=== PATIENT | female | born 1955 | race African-American/Black ===

== ENCOUNTER 2020-09-27 19:33 | Inpatient (IN) | payer MEDICAID, OTHER ==
[~2020-09-27] VITALS: Ht 167.6 cm; Wt 63.5 kg
[2020-09-27] MEDS ORDERED: FUROSEMIDE 40 MG/4 ML VIAL IV ONE ×2 (20:00→22:00)
--- NOTE | 2020-09-27 20:08 | NUR ---
WILLIS FROM HOME TO ER BED 7. AAOX4. SOB, ON 2 VIA NON REBREATHER MASK, SATTING @ 100%. BROUGHT IN FOR SOB WHICH STARTED TODAY. PT WAS REPORTD TO HAVE AN O2 SAT IN THE 80% ON RA. PT WAS NOTED WITH CRACKLES AND BILAT LOWER LEG EDEMA. WAS AT THE BEDSIDE FOR EVAL. ORDERS RECEIVED, NOTED AND CARRIED OUT.
[2020-09-27] MEDS ORDERED: FUROSEMIDE 40 MG/4 ML VIAL ONE (20:26)
[2020-09-27 20:41] LABS: BILIRUBIN,TOTAL 0.1 mg/dL (0.2-1.0); CALCIUM, SERUM 6.4 mg/dL (8.5-10.1); CREATININE 3.8 mg/dL (0.6-1.3); POTASSIUM 3.8 mmol/L (3.5-5.1); TOTAL PROTEIN, SERUM 4.7 g/dL (6.4-8.2)
[2020-09-27 20:43] LABS: ALBUMIN 1.2 g/dL (3.4-5.0)
--- NOTE | 2020-09-27 20:45 | NUR ---
RT NOTES PT awake and alert, refusing to be placed on BIPAP via full mask. Dr. Carreon notified. Pt placed on Nasal Cannula on 6 LPM O2 and ABG to be drawn per Velma EDGAR.
[2020-09-27 21:23] LABS: ABG BASE EXCESS -0.8 mmol/L; ABG OXYGEN SATURATION 96.1 % (92.0-98.5); ABG PCO2 49.5 mmHg (35.0-45.0); ABG PH 7.328 (7.350-7.450); AaDO2 156.3 mmHg; COHb 0.2 % (0.5-1.5); MetHb 0.5 % (0.0-1.5); O2Hb 95.4 % (94.0-97.0); SITE, ABG Right Radial; VENT MODE, BG N/C 44%
[2020-09-27 21:26] LABS: BASOPHILS # (AUTO) 0.1 K/uL (0.0-0.2); EOSINOPHILS % (AUTO) 1.4 % (0.0-6.0); HEMATOCRIT 27 % (33-45); HEMOGLOBIN 8.2 g/dL (11.5-14.8); LYMPHOCYTES % (AUTO) 10.4 % (20.0-44.0); MEAN CORPUSCULAR HGB CONC 30 g/dl (31.0-36.0); MEAN CORPUSCULAR VOLUME 73 fL (82-100); MONOCYTES # (AUTO) 0.7 K/uL (0.1-1.30); NEUTROPHILS # (AUTO) 7.5 K/uL (1.8-8.9); NEUTROPHILS % (AUTO) 80.2 % (43.0-81.0); PLATELET COUNT (AUTO) 403 K/uL (150-450); RED BLOOD CELL COUNT(AUTO) 3.78 MIL/uL (4.0-5.2); WHITE BLOOD COUNT (AUTO) 9.4 K/uL (4.3-11.0)
[2020-09-27 21:33] LABS: LYMPHOCYTES % (MANUAL) 5 % (16-48); MONOCYTES % (MANUAL) 3 % (0-11.0); NEUTROPHILS % (MANUAL) 91 (42-76); REACTIVE LYMPHOCYTES 1 % (0-0)
--- NOTE | 2020-09-27 22:28 | NUR ---
SPOKE WITH ARACELI, NURSE INSTRUCTOR FOR CLONICAL
--- NOTE | 2020-09-28 02:04 | NUR ---
PROVIDED WITH BLANKET AND A PILLOW. VSS. ASLEEP.
[2020-09-28] MEDS ORDERED: ZOLPIDEM TARTRATE 5 MG TABLET PO PRN (03:00)
[2020-09-28] MEDS ORDERED: ACETAMINOPHEN 325 MG TABLET PO PRN (03:00)
[2020-09-28] MEDS ORDERED: ONDANSETRON HCL/PF 4 MG/2 ML VIAL IVP PRN (03:00)
[2020-09-28] MEDS ORDERED: MAGNESIUM HYDROXIDE 30 ML UDC PO PRN (03:00)
[2020-09-28] MEDS ORDERED: Z GUARD REMEDY 2 OZ OINT TP PRN (03:00)
[2020-09-28] MEDS ORDERED: BUMETANIDE INJ 1 MG in IV NS 0.9% 40 ML IV ONE (03:00)
[2020-09-28] MEDS ORDERED: BUMETANIDE INJ 0.25 MG/ML VIAL ONE (03:31)
[2020-09-28 04:40] LABS: BASOPHILS # (AUTO) 0.1 K/uL (0.0-0.2); BASOPHILS % (AUTO) 0.7 % (0.0-2.0); EOSINOPHILS % (AUTO) 1.8 % (0.0-6.0); HEMATOCRIT 29 % (33-45); HEMOGLOBIN 8.8 g/dL (11.5-14.8); LYMPHOCYTES # (AUTO) 0.9 K/uL (0.8-4.8); MEAN CORPUSCULAR HGB CONC 30 g/dl (31.0-36.0); MEAN CORPUSCULAR VOLUME 73 fL (82-100); MONOCYTES # (AUTO) 0.8 K/uL (0.1-1.30); MONOCYTES % (AUTO) 8.1 % (2.0-12.0); NEUTROPHILS # (AUTO) 7.9 K/uL (1.8-8.9); NEUTROPHILS % (AUTO) 80.4 % (43.0-81.0); PLATELET COUNT (AUTO) 420 K/uL (150-450); WHITE BLOOD COUNT (AUTO) 9.8 K/uL (4.3-11.0)
[2020-09-28 04:51] LABS: CALCIUM, SERUM 6.8 mg/dL (8.5-10.1); MAGNESIUM 1.7 mg/dL (1.8-2.4); PHOSPHORUS 5.1 mg/dL (2.5-4.9); POTASSIUM 3.7 mmol/L (3.5-5.1)
[2020-09-28 05:35] LABS: BASOPHILS % (MANUAL) 0 % (0.0-2.0); EOSINOPHILS % (MANUAL) 2 % (0-4); LYMPHOCYTES % (MANUAL) 4 % (16-48); MONOCYTES % (MANUAL) 4 % (0-11.0); NEUTROPHILS % (MANUAL) 89 (42-76)
[2020-09-28 05:47] LABS: IRON, SERUM 14 ug/dl (50-175); TOTAL IRON BINDING CAPACITY 221 ug/dl (250-450)
[2020-09-28 07:35] VITALS: BP 168/98
--- NOTE | 2020-09-28 07:35 | NUR ---
PATIENT IN BED, ON O2 WITH NO DISTRESS NOTED. NEEDS ATTENDED. KEPT COMFORTABLE.
[2020-09-28] MEDS ORDERED: AMLO-213 PO (08:00)
[2020-09-28] MEDS ORDERED: ASPI-1169 PO (08:00)
[2020-09-28] MEDS ORDERED: CARV12.52 PO (08:00)
[2020-09-28] MEDS ORDERED: FURO40TA5 PO (08:00)
[2020-09-28] MEDS ORDERED: MULT-447 PO (08:00)
[2020-09-28] MEDS ORDERED: SIMV-46 PO (08:00)
--- NOTE | 2020-09-28 08:07 | NUR ---
REPORT GIVEN TO INO RECINOS FOR FILIPPO.
--- NOTE | 2020-09-28 09:46 | NUR ---
RN NOTE DR. BREWER NOTIFIED OF PATIENT LEAVING AMA. AMA DOCUMENTATION SIGNED BY PATIENT.
== END 2020-09-28 10:50 | disposition left against medical advice (07) | DRG 469 ==
LOC: ER 19:35 → TRANSITION 09-28 02:29 → TELE1 09-28 08:10
PROVIDERS: ADMIT Nurse Practitioner Acute Care; ATTEND Hospitalist
DX: N17.9 Acute kidney failure, unspecified (principal); J96.00 Acute respiratory failure, unspecified whether with hypoxia or hypercapnia; E43 Unspecified severe protein-calorie malnutrition; J90 Pleural effusion, not elsewhere classified; E87.0 Hyperosmolality and hypernatremia; D50.9 Iron deficiency anemia, unspecified; F12.90 Cannabis use, unspecified, uncomplicated; D63.8 Anemia in other chronic diseases classified elsewhere; N18.9 Chronic kidney disease, unspecified; Z20.822 Contact with and (suspected) exposure to COVID-19; I25.10 Atherosclerotic heart disease of native coronary artery without angina pectoris; J44.9 Chronic obstructive pulmonary disease, unspecified; I12.9 Hypertensive chronic kidney disease with stage 1 through stage 4 chronic kidney disease, or unspecified chronic kidney disease; Z91.19 Patient's noncompliance with other medical treatment and regimen; F14.90 Cocaine use, unspecified, uncomplicated; Z79.899 Other long term (current) drug therapy
CPT/HCPCS: 36415; 36600; 71045-TC; 80048-TC; 80061-TC; 80076-TC; 83540-TC; 83735-TC; 83880; 84100-TC; 84484-TC; 85025-TC; 85730-TC; 87081-TC; C9803; G0378; J1940; J2405; J3490

== ENCOUNTER 2021-11-29 23:42 | Emergency (ER) | payer OTHER ==
[~2021-11-29] VITALS: Ht 167.6 cm; Wt 64.9 kg
[~2021-11-29 23:42] MED LIST: AMLO-213 PO; ASPI-1169 PO; CARV12.52 PO; FURO40TA5 PO; MULT-447 PO; SIMV-46 PO
--- NOTE | 2021-11-30 00:42 | NUR ---
WILLIS FROM HOME TO ER BED 6.AAOX4. NOT IN RESP DISTRESS. BROUGHT IN FOR ABD PAIN COUASED BY DISTENTION WHICH STARTED TODAY BECAUSE SHE MISSED HER DIALYSIS TODAY. AWAITING MD FOR TERESA.
--- NOTE | 2021-11-30 01:09 | NUR ---
MARCO COLLECTED AND SENT TO LAB
--- NOTE | 2021-11-30 01:31 | NUR ---
IV LINE ESTABLISHED. [id number]
--- NOTE | 2021-11-30 01:31 | NUR ---
BLOOD AND CULTURES COLLECTED
--- NOTE | 2021-11-30 01:35 | NUR ---
PT TAKEN TO CT VIA TWAN
--- NOTE | 2021-11-30 01:35 | NUR ---
PT TAKEN TO CT SCAN VIA TWAN
[2021-11-30 01:50] LABS: BASOPHILS # (AUTO) 0.1 K/uL (0.0-0.2); BASOPHILS % (AUTO) 0.9 % (0.0-2.0); EOSINOPHILS % (AUTO) 1.4 % (0.0-6.0); HEMATOCRIT 35 % (33-45); HEMOGLOBIN 10.5 g/dL (11.5-14.8); LYMPHOCYTES # (AUTO) 0.8 K/uL (0.8-4.8); LYMPHOCYTES % (AUTO) 13.2 % (20.0-44.0); MEAN CORPUSCULAR HGB CONC 31 g/dl (31.0-36.0); MEAN CORPUSCULAR VOLUME 92 fL (82-100); MONOCYTES # (AUTO) 0.6 K/uL (0.1-1.30); MONOCYTES % (AUTO) 10.1 % (2.0-12.0); NEUTROPHILS # (AUTO) 4.3 K/uL (1.8-8.9); NEUTROPHILS % (AUTO) 74.4 % (43.0-81.0); PLATELET COUNT (AUTO) 333 K/uL (150-450); RED BLOOD CELL COUNT(AUTO) 3.77 MIL/uL (4.0-5.2); WHITE BLOOD COUNT (AUTO) 5.8 K/uL (4.3-11.0)
[2021-11-30 02:00] LABS: SERUM AMMONIA < 10 umol/L (11-32)
--- NOTE | 2021-11-30 02:02 | NUR ---
[facility] DR. SIMONS PEER TO PEER # FOR REPORT [phone]
--- NOTE | 2021-11-30 02:16 | NUR ---
PT UNABLE TO PROVIDE URINE AT THIS TIME
[2021-11-30 02:23] LABS: ALANINE AMINOTRANSFERASE 26 U/L (12-78); ALBUMIN 1.7 g/dL (3.4-5.0); ALKALINE PHOSPHATASE 152 U/L (46-116); ASPARTATE AMINOTRANSFERASE 28 U/L (15-37); BILIRUBIN,TOTAL 0.1 mg/dL (0.2-1.0); CARBON DIOXIDE 27 mmol/L (21-32); CHLORIDE 110 mmol/L (98-107); CREATININE 4.2 mg/dL (0.6-1.3); GLUCOSE 117 mg/dL (74-106); LIPASE 201 U/L (73-393); POTASSIUM 4.8 mmol/L (3.5-5.1); SODIUM SERUM 143 mmol/L (136-145); TOTAL PROTEIN, SERUM 5.3 g/dL (6.4-8.2); UREA NITROGEN, BLOOD 42 mg/dL (7-18)
--- NOTE | 2021-11-30 03:44 | NUR ---
CLINICALS FAXED TO [facility] PER DEBRA JOSHUA
--- NOTE | 2021-11-30 04:32 | NUR ---
ACCEPTING INFO PER [facility] CM [phone] [facility] ROOM [address] KRISTYN HAMILTON FOR TRANSPORTATION [id number] Addendum: 11/30/21 at 0441 by JISIP ACCEPTING INFO PER [facility] CM [phone] [facility] ROOM [address] KRISTYN HAMILTON FOR TRANSPORTATION [phone]
--- NOTE | 2021-11-30 04:41 | NUR ---
TRANSFER ETA 90-120MINS
--- NOTE | 2021-11-30 05:30 | NUR ---
REPORT GIVEN TO SHAYNE RECINOS AT [facility] FOR FILIPPO
--- NOTE | 2021-11-30 05:45 | NUR ---
ADLS DONE; PT TAKEN TO RESTROOM VIA W/C. URINE OUTPUT NOTED
[2021-11-30 07:07] VITALS: BP 144/88
[2021-11-30 10:55] LABS: EOSINOPHILS % (MANUAL) 5 % (0-4); LYMPHOCYTES % (MANUAL) 3 % (16-48); METAMYELOCYTES % 1 % (0-0); MONOCYTES % (MANUAL) 10 % (0-11.0); NEUTROPHILS % (MANUAL) 81 (42-76)
== END 2021-11-30 08:21 | disposition short-term general hospital (02) ==
LOC: ER 23:43
DX: R18.8 Other ascites (principal); K74.60 Unspecified cirrhosis of liver; N17.9 Acute kidney failure, unspecified; I13.2 Hypertensive heart and chronic kidney disease with heart failure and with stage 5 chronic kidney disease, or end stage renal disease; N18.6 End stage renal disease; I50.9 Heart failure, unspecified; Z99.2 Dependence on renal dialysis; Z79.82 Long term (current) use of aspirin; Z79.899 Other long term (current) drug therapy; J44.9 Chronic obstructive pulmonary disease, unspecified; R94.31 Abnormal electrocardiogram [ECG] [EKG]; Z20.822 Contact with and (suspected) exposure to COVID-19
CPT/HCPCS: 99285; 74176; 71045; 87426; 93005; 82140; 85025; 80048; 87040 ×2; 83605; 83690; 80076; 36415; 84484; 85730; 85007; C9803

== ENCOUNTER 2022-02-18 11:18 | Emergency (ER) | payer MEDICAID, OTHER ==
[~2022-02-18] VITALS: Ht 167.6 cm; Wt 64.9 kg
--- NOTE | 2022-02-18 11:20 | NUR ---
BIBA RA81 From Home "SOB/COPD exacerbation/Kidney Failure on dialysis. PLACED ON BED, AAOX4, TACHYPNEIC RR- 30 SATURATING AT 94%RA.
--- NOTE | 2022-02-18 11:31 | NUR ---
DR ESCAMILLA AT BEDSIDE FOR EVAL
[2022-02-18] MEDS ORDERED: ALBUTEROL FS 2.5 MG/3 ML VIAL.NEB ONE (11:53)
[2022-02-18] MEDS ORDERED: IPRATROPIUM NEB FS 0.5 MG/2.5 ML AMPUL.NEB ONE (11:54)
--- NOTE | 2022-02-18 11:55 | NUR ---
BLOOD DRAWN AND SENT TO LAB
[2022-02-18] MEDS ORDERED: methylPREDNISolone SOD SUCC 125 MG/2ML VIAL ONE (11:58)
[2022-02-18] MEDS ORDERED: ALBUTEROL FS 2.5 MG/3 ML VIAL.NEB NEB ONE (12:00)
[2022-02-18] MEDS ORDERED: methylPREDNISolone SOD SUCC 125 MG/2ML VIAL IV ONE (12:00)
[2022-02-18] MEDS ORDERED: IPRATROPIUM NEB FS 0.5 MG/2.5 ML AMPUL.NEB NEB ONE (12:00)
--- NOTE | 2022-02-18 12:11 | NUR ---
SWAB FOR COVID19 AND RAPID INFLUENZA SENT TO LAB
--- NOTE | 2022-02-18 12:15 | NUR ---
PT VERBALIZED THAT SHE WANTED TO LEAVE THE HOSPITAL AND GO HOME. DR. ESCAMILLA AT BEDSIDE W/ PT AND AWARE.
--- NOTE | 2022-02-18 12:19 | NUR ---
CALLED PT CONTACT [phone] AND WILL BE PICKED UP
--- NOTE | 2022-02-18 12:25 | NUR ---
RESP. TECH. AT BEDSIDE FOR BREATHING TREATMENT
[2022-02-18 12:28] LABS: BASOPHILS % (AUTO) 0.3 % (0.0-2.0); EOSINOPHILS % (AUTO) 0.9 % (0.0-6.0); HEMATOCRIT 30 % (33-45); HEMOGLOBIN 9.4 g/dL (11.5-14.8); LYMPHOCYTES # (AUTO) 0.2 K/uL (0.8-4.8); LYMPHOCYTES % (AUTO) 3.2 % (20.0-44.0); MEAN CORPUSCULAR HGB CONC 31 g/dl (31.0-36.0); MEAN CORPUSCULAR VOLUME 83 fL (82-100); MONOCYTES # (AUTO) 0.5 K/uL (0.1-1.30); MONOCYTES % (AUTO) 6.4 % (2.0-12.0); NEUTROPHILS # (AUTO) 6.9 K/uL (1.8-8.9); NEUTROPHILS % (AUTO) 89.2 % (43.0-81.0); PLATELET COUNT (AUTO) 321 K/uL (150-450); RED BLOOD CELL COUNT(AUTO) 3.65 MIL/uL (4.0-5.2); WHITE BLOOD COUNT (AUTO) 7.8 K/uL (4.3-11.0)
--- NOTE | 2022-02-18 12:39 | NUR ---
MIGRATORY WORKER/MED RECON UNABLE TO UPDATE HOME MEDICATION INFORMATION DUE TO THE PATIENT REFUSED TO PROVIDE. EXPLAINED RISK AND BENEFITS X3, PATIENT STILL REFUSED. PATIENT RIGHTS RESPECTED. PRIMARY RN MADE AWARE.
[2022-02-18 12:52] LABS: BILIRUBIN,DIRECT 0.1 mg/dL (0.0-0.2); BILIRUBIN,TOTAL 0.2 mg/dL (0.2-1.0); CREATININE 3.7 mg/dL (0.6-1.3); POTASSIUM 3.7 mmol/L (3.5-5.1); TOTAL PROTEIN, SERUM 4.4 g/dL (6.4-8.2)
[2022-02-18 13:06] LABS: CALCIUM, SERUM 4.6 mg/dL (8.5-10.1)
[2022-02-18 13:07] LABS: ALBUMIN 1.3 g/dL (3.4-5.0)
--- NOTE | 2022-02-18 13:20 | NUR ---
Note undone in EDM - 02/18/22 at 1326 by MARCO IV removed. Catheter intact and site benign. Pressure and 4x4 applied to site. No bleeding noted.Patient discharged to home in stable condition. Written and verbal after care instructions given. Patient verbalizes understanding of instruction.
--- NOTE | 2022-02-18 13:20 | NUR ---
IV removed. Catheter intact and site benign. Pressure and 4x4 applied to site. No bleeding noted.Patient discharged to home in stable condition.
[2022-02-18 13:27] VITALS: BP 98/50
== END 2022-02-18 13:20 | disposition home or self-care (01) ==
LOC: ER 11:25
DX: J44.9 Chronic obstructive pulmonary disease, unspecified (principal); I13.11 Hypertensive heart and chronic kidney disease without heart failure, with stage 5 chronic kidney disease, or end stage renal disease; N18.6 End stage renal disease; Z99.2 Dependence on renal dialysis; Z79.899 Other long term (current) drug therapy; Z79.82 Long term (current) use of aspirin; Z53.29 Procedure and treatment not carried out because of patient's decision for other reasons; Z20.822 Contact with and (suspected) exposure to COVID-19
CPT/HCPCS: 99291; 96374; 87426; 93005; 87804; 85025; 80048; 80076; 83880; 94640; J2930; C9803; 36415

== ENCOUNTER 2022-09-29 22:46 | Emergency (ER) | payer MEDICARE, OTHER ==
[~2022-09-29] VITALS: Ht 167.6 cm; Wt 62.6 kg
[2022-09-29] MEDS ORDERED: NITROGLYCERIN 0.4 MG/TAB BOTTLE SL ONE (23:00)
[2022-09-29] MEDS ORDERED: FUROSEMIDE 40 MG/4 ML VIAL IV ONE (23:00)
[2022-09-29] MEDS ORDERED: NITROGLYCERIN 0.4 MG/TAB BOTTLE ONE (23:33)
[2022-09-30] MEDS ORDERED: FUROSEMIDE 40 MG/4 ML VIAL ONE (00:08)
[2022-09-30] MEDS ORDERED: AZITHROMYCIN 500 MG in IV D5W 250 ML IV ONE (01:30)
[2022-09-30] MEDS ORDERED: CEFTRIAXONE 1 G in IV D5W 50 ML IV ONE (01:30)
[2022-09-30] MEDS ORDERED: LIDOCAINE 1% INJ 50 ML MDV IJ ONE (01:43)
[2022-09-30] MEDS ORDERED: AZITHROMYCIN 500 MG VIAL ONE (01:43)
[2022-09-30] MEDS ORDERED: CEFTRIAXONE 1 G VIAL ONE (01:43)
[2022-09-30 01:51] LABS: BASOPHILS # (AUTO) 0.1 K/uL (0.0-0.2); EOSINOPHILS # (AUTO) 0.2 K/uL (0.0-0.7); HEMATOCRIT 25 % (33-45); HEMOGLOBIN 7.3 g/dL (11.5-14.8); LYMPHOCYTES # (AUTO) 0.7 K/uL (0.8-4.8); MEAN CORPUSCULAR HGB CONC 30 g/dl (31.0-36.0); MONOCYTES # (AUTO) 0.9 K/uL (0.1-1.30)
[2022-09-30 01:57] LABS: BASOPHILS % (AUTO) 0.9 % (0.0-2.0); EOSINOPHILS % (AUTO) 2.3 % (0.0-6.0); LYMPHOCYTES % (AUTO) 7.4 % (20.0-44.0); MEAN CORPUSCULAR HEMOGLOBIN 25 PG (26.0-33.0); MEAN CORPUSCULAR VOLUME 84 fL (82-100); MONOCYTES % (AUTO) 10.4 % (2.0-12.0); PLATELET COUNT (AUTO) 435 K/uL (150-450); RED BLOOD CELL COUNT(AUTO) 2.93 MIL/uL (4.0-5.2); RED CELL DISTRIBUTION WIDTH 20.1 % (11.5-15.0); WHITE BLOOD COUNT (AUTO) 8.9 K/uL (4.3-11.0)
[2022-09-30 02:00] LABS: CALCIUM, SERUM 6.6 mg/dL (8.5-10.1); CARBON DIOXIDE 25 mmol/L (21-32); CHLORIDE 109 mmol/L (98-107); CREATININE 2.9 mg/dL (0.6-1.3); GLUCOSE 108 mg/dL (74-106); POTASSIUM 4.5 mmol/L (3.5-5.1); SODIUM SERUM 143 mmol/L (136-145); UREA NITROGEN, BLOOD 45 mg/dL (7-18)
[2022-09-30 02:08] LABS: INR 1.06 (0.91-1.10); LACTIC ACID 0.2 mmol/L (0.4-2.0); PARTIAL THROMBOPLASTIN TIME 29.3 SEC (24.3-34.3); PROTHROMBIN TIME 11.1 SECS (9.2-11.1)
[2022-09-30 02:13] LABS: ALANINE AMINOTRANSFERASE 35 U/L (12-78); ALKALINE PHOSPHATASE 143 U/L (46-116); ASPARTATE AMINOTRANSFERASE 31 U/L (15-37); BILIRUBIN,DIRECT 0.1 mg/dL (0.0-0.2); BILIRUBIN,TOTAL 0.1 mg/dL (0.2-1.0); NT-PRO BNP 4039 pg/mL (0-125); TOTAL PROTEIN, SERUM 4.8 g/dL (6.4-8.2)
[2022-09-30 02:27] LABS: ALBUMIN 1.4 g/dL (3.4-5.0)
[2022-09-30 09:45] VITALS: BP 135/88; TEMP 98.4; O2SAT 98
== END 2022-09-30 09:48 | disposition home or self-care (01) ==
LOC: ER 22:55
DX: I13.2 Hypertensive heart and chronic kidney disease with heart failure and with stage 5 chronic kidney disease, or end stage renal disease (principal); I50.9 Heart failure, unspecified; N18.6 End stage renal disease; J18.9 Pneumonia, unspecified organism; D64.9 Anemia, unspecified; R18.8 Other ascites; J44.9 Chronic obstructive pulmonary disease, unspecified; F17.200 Nicotine dependence, unspecified, uncomplicated; Z99.2 Dependence on renal dialysis; Z20.822 Contact with and (suspected) exposure to COVID-19; Z79.899 Other long term (current) drug therapy; Z79.82 Long term (current) use of aspirin; Z60.2 Problems related to living alone
CPT/HCPCS: 99291; 96375; 87426; 93005; 71045; 87040 ×2; 36415; 96365; 96367; 85025; 80048; 83605; 80076; 84484; 85730; 83880; J1940; J3490; J0696 ×2; J7060 ×2; J7030; J0456; C9803

== ENCOUNTER 2022-11-03 21:43 | Emergency (ER) | payer MEDICARE, OTHER ==
[~2022-11-03] VITALS: Ht 167.6 cm; Wt 62.6 kg
[2022-11-03 21:54] VITALS: TEMP 98.5
[2022-11-03] MEDS ORDERED: FUROSEMIDE 40 MG/4 ML VIAL IV ONE (22:00)
[2022-11-03] MEDS ORDERED: FUROSEMIDE 40 MG/4 ML VIAL ONE (22:00)
[2022-11-03 22:22] LABS: BASOPHILS # (AUTO) 0.1 K/uL (0.0-0.2); BASOPHILS % (AUTO) 0.9 % (0.0-2.0); EOSINOPHILS # (AUTO) 0.2 K/uL (0.0-0.7); EOSINOPHILS % (AUTO) 2.2 % (0.0-6.0); HEMATOCRIT 31 % (33-45); HEMOGLOBIN 8.8 g/dL (11.5-14.8); LYMPHOCYTES # (AUTO) 0.5 K/uL (0.8-4.8); LYMPHOCYTES % (AUTO) 7.3 % (20.0-44.0); MEAN CORPUSCULAR HEMOGLOBIN 26 PG (26.0-33.0); MEAN CORPUSCULAR HGB CONC 29 g/dl (31.0-36.0); MEAN CORPUSCULAR VOLUME 90 fL (82-100); MONOCYTES # (AUTO) 0.6 K/uL (0.1-1.30); MONOCYTES % (AUTO) 7.8 % (2.0-12.0); NEUTROPHILS # (AUTO) 6.1 K/uL (1.8-8.9); NEUTROPHILS % (AUTO) 81.8 % (43.0-81.0); PLATELET COUNT (AUTO) 333 K/uL (150-450); RED CELL DISTRIBUTION WIDTH 23.8 % (11.5-15.0); WHITE BLOOD COUNT (AUTO) 7.4 K/uL (4.3-11.0)
[2022-11-03 22:33] LABS: INR 1.02 (0.91-1.10); PARTIAL THROMBOPLASTIN TIME 26.6 SEC (24.3-34.3); PROTHROMBIN TIME 10.7 SECS (9.2-11.1)
[2022-11-03 22:54] LABS: CALCIUM, SERUM 6.7 mg/dL (8.5-10.1); CARBON DIOXIDE 27 mmol/L (21-32); CHLORIDE 112 mmol/L (98-107); CREATININE 2.8 mg/dL (0.6-1.3); GLUCOSE 105 mg/dL (74-106); POTASSIUM 4.4 mmol/L (3.5-5.1); SODIUM SERUM 146 mmol/L (136-145); UREA NITROGEN, BLOOD 33 mg/dL (7-18)
[2022-11-03 23:02] LABS: LACTIC ACID 0.8 mmol/L (0.4-2.0)
[2022-11-03 23:09] LABS: ALANINE AMINOTRANSFERASE 22 U/L (12-78); ALBUMIN 1.5 g/dL (3.4-5.0); ALKALINE PHOSPHATASE 144 U/L (46-116); ASPARTATE AMINOTRANSFERASE 24 U/L (15-37); BILIRUBIN,DIRECT 0.1 mg/dL (0.0-0.2); BILIRUBIN,TOTAL 0.1 mg/dL (0.2-1.0); NT-PRO BNP 5777 pg/mL (0-125)
[2022-11-03] MEDS ORDERED: CEFTRIAXONE 1GM BAG (ER ONLY) 1 GM/50 ML PIGGYBACK IV ONE (23:30)
[2022-11-03] MEDS ORDERED: AZITHROMYCIN 500 MG in IV D5W 250 ML IV ONE (23:30)
[2022-11-03] MEDS ORDERED: CEFTRIAXONE 1GM BAG (ER ONLY) 50 ML IV ONE (23:31)
[2022-11-03] MEDS ORDERED: AZITHROMYCIN 500 MG VIAL ONE (23:31)
[2022-11-04 00:17] LABS: ANISOCYTOSIS 1+; EOSINOPHILS % (MANUAL) 1 % (0-4); LYMPHOCYTES % (MANUAL) 3 % (16-48); MONOCYTES % (MANUAL) 9 % (0-11.0); NEUTROPHILS % (MANUAL) 87 (42-76); PLATELET ESTIMATE ADEQUATE
[2022-11-04 00:18] LABS: OVALOCYTES 1+
[2022-11-04] MEDS ORDERED: ONDANSETRON HCL/PF 4 MG/2 ML VIAL ONE (00:33)
[2022-11-04] MEDS ORDERED: ONDANSETRON HCL/PF 4 MG/2 ML VIAL IV ONE (01:00)
[2022-11-04 02:18] LABS: ANISOCYTOSIS 1+; OVALOCYTES 1+; PLATELET ESTIMATE ADEQUATE
[2022-11-04 07:06] VITALS: BP 123/75; O2SAT 99
== END 2022-11-04 08:42 | disposition short-term general hospital (02) ==
LOC: ER 21:51
DX: I13.2 Hypertensive heart and chronic kidney disease with heart failure and with stage 5 chronic kidney disease, or end stage renal disease (principal); N18.6 End stage renal disease; I50.9 Heart failure, unspecified; D63.1 Anemia in chronic kidney disease; R18.8 Other ascites; J18.9 Pneumonia, unspecified organism; J44.9 Chronic obstructive pulmonary disease, unspecified; F17.200 Nicotine dependence, unspecified, uncomplicated; Z20.822 Contact with and (suspected) exposure to COVID-19; Z79.82 Long term (current) use of aspirin; Z79.899 Other long term (current) drug therapy; Z99.2 Dependence on renal dialysis; Z60.2 Problems related to living alone
CPT/HCPCS: 99291; 96365; 96367; 96375 ×2; 87426; 93005; 71045; 85025; 80048; 87040 ×2; 83605; 80076; 36415 ×2; 84484; 85730; 83880; 85007; J1940; J0456; A4223; J0696; J2405; J7030; C9803; J7060

== ENCOUNTER 2022-11-14 23:11 | Emergency (ER) | payer MEDICARE, OTHER ==
[~2022-11-14] VITALS: Ht 167.6 cm; Wt 62.6 kg
[2022-11-15] MEDS ORDERED: methylPREDNISolone SOD SUCC 125 MG/2ML VIAL IV ONE
[2022-11-15] MEDS ORDERED: IPRATROPIUM NEB FS 0.5 MG/2.5 ML AMPUL.NEB NEB ONE
[2022-11-15] MEDS ORDERED: ALBUTEROL FS 2.5 MG/3 ML VIAL.NEB NEB ONE
[2022-11-15] MEDS ORDERED: ALBUTEROL FS 2.5 MG/3 ML VIAL.NEB ONE (00:09)
[2022-11-15] MEDS ORDERED: IPRATROPIUM NEB FS 0.5 MG/2.5 ML AMPUL.NEB ONE (00:09)
[2022-11-15 00:15] VITALS: O2SAT 100
[2022-11-15 00:25] VITALS: O2SAT 100
[2022-11-15 00:27] VITALS: O2SAT 100
[2022-11-15] MEDS ORDERED: methylPREDNISolone SOD SUCC 125 MG/2ML VIAL ONE (00:33)
[2022-11-15 00:37] VITALS: O2SAT 100
[2022-11-15 01:59] LABS: BASOPHILS # (AUTO) 0.1 K/uL (0.0-0.2); BASOPHILS % (AUTO) 1.1 % (0.0-2.0); EOSINOPHILS # (AUTO) 0.2 K/uL (0.0-0.7); EOSINOPHILS % (AUTO) 2.2 % (0.0-6.0); HEMATOCRIT 29 % (33-45); HEMOGLOBIN 8.7 g/dL (11.5-14.8); LYMPHOCYTES # (AUTO) 0.5 K/uL (0.8-4.8); LYMPHOCYTES % (AUTO) 7.1 % (20.0-44.0); MEAN CORPUSCULAR HEMOGLOBIN 26 PG (26.0-33.0); MEAN CORPUSCULAR HGB CONC 30 g/dl (31.0-36.0); MEAN CORPUSCULAR VOLUME 88 fL (82-100); MONOCYTES # (AUTO) 0.6 K/uL (0.1-1.30); MONOCYTES % (AUTO) 8.6 % (2.0-12.0); NEUTROPHILS # (AUTO) 5.5 K/uL (1.8-8.9); PLATELET COUNT (AUTO) 343 K/uL (150-450); RED BLOOD CELL COUNT(AUTO) 3.33 MIL/uL (4.0-5.2); RED CELL DISTRIBUTION WIDTH 20.9 % (11.5-15.0); WHITE BLOOD COUNT (AUTO) 6.8 K/uL (4.3-11.0)
[2022-11-15 02:12] LABS: MAGNESIUM 2.1 mg/dL (1.8-2.4); PHOSPHORUS 4.7 mg/dL (2.5-4.9)
[2022-11-15 02:14] LABS: ALANINE AMINOTRANSFERASE 24 U/L (12-78); ALBUMIN 1.5 g/dL (3.4-5.0); ALKALINE PHOSPHATASE 145 U/L (46-116); ASPARTATE AMINOTRANSFERASE 23 U/L (15-37); BILIRUBIN,DIRECT 0.1 mg/dL (0.0-0.2); BILIRUBIN,TOTAL 0.1 mg/dL (0.2-1.0); CALCIUM, SERUM 6.8 mg/dL (8.5-10.1); CARBON DIOXIDE 29 mmol/L (21-32); CHLORIDE 110 mmol/L (98-107); CREATININE 2.3 mg/dL (0.6-1.3); GLUCOSE 133 mg/dL (74-106); POTASSIUM 3.9 mmol/L (3.5-5.1); SODIUM SERUM 145 mmol/L (136-145); TOTAL PROTEIN, SERUM 5.2 g/dL (6.4-8.2); UREA NITROGEN, BLOOD 30 mg/dL (7-18)
[2022-11-15 02:16] LABS: LACTIC ACID 0.9 mmol/L (0.4-2.0)
[2022-11-15] MEDS ORDERED: PRED50TA PO (03:49)
[2022-11-15 04:58] VITALS: BP 141/83; TEMP 98.3; O2SAT 97
== END 2022-11-15 04:59 | disposition home or self-care (01) ==
LOC: ER 23:12
DX: R06.02 Shortness of breath (principal); I13.2 Hypertensive heart and chronic kidney disease with heart failure and with stage 5 chronic kidney disease, or end stage renal disease; N18.6 End stage renal disease; I50.9 Heart failure, unspecified; J44.9 Chronic obstructive pulmonary disease, unspecified; F17.200 Nicotine dependence, unspecified, uncomplicated; Z60.2 Problems related to living alone; Z20.822 Contact with and (suspected) exposure to COVID-19
CPT/HCPCS: 99285; 71045; 93005; 36415; 96374; 87426; 85025; 80048; 83605; 80076; 83735; 84100; 84484; 94640 ×2; J2930; C9803

== ENCOUNTER 2022-12-13 06:19 | Emergency (ER) | payer MEDICARE, OTHER ==
[~2022-12-13] VITALS: Ht 167.6 cm; Wt 63.5 kg
[~2022-12-13 06:19] MED LIST changes: +PRED50TA PO
[2022-12-13] MEDS ORDERED: PIPERACILLIN /TAZOBACTAM 3.375 G in IV D5W 50 ML IV ONE (06:30)
[2022-12-13] MEDS ORDERED: VANCOMYCIN 1 GM in IV D5W 250 ML IV ONE (06:30)
[2022-12-13] MEDS ORDERED: PIPERACI/TAZO 3.375GM/D5W 50ML PB IV ONE (06:55)
[2022-12-13] MEDS ORDERED: VANCOMYCIN 1 GM /D5W 250 ML PB IV ONE (06:55)
[2022-12-13 07:10] LABS: BASOPHILS # (AUTO) 0.1 K/uL (0.0-0.2); BASOPHILS % (AUTO) 1.1 % (0.0-2.0); EOSINOPHILS # (AUTO) 0.1 K/uL (0.0-0.7); EOSINOPHILS % (AUTO) 1.6 % (0.0-6.0); HEMATOCRIT 27 % (33-45); LYMPHOCYTES # (AUTO) 0.4 K/uL (0.8-4.8); LYMPHOCYTES % (AUTO) 5.4 % (20.0-44.0); MEAN CORPUSCULAR HEMOGLOBIN 25 PG (26.0-33.0); MEAN CORPUSCULAR HGB CONC 29 g/dl (31.0-36.0); MEAN CORPUSCULAR VOLUME 86 fL (82-100); MONOCYTES # (AUTO) 0.7 K/uL (0.1-1.30); MONOCYTES % (AUTO) 8.9 % (2.0-12.0); NEUTROPHILS # (AUTO) 6.3 K/uL (1.8-8.9); PLATELET COUNT (AUTO) 497 K/uL (150-450); RED BLOOD CELL COUNT(AUTO) 3.17 MIL/uL (4.0-5.2); RED CELL DISTRIBUTION WIDTH 20.3 % (11.5-15.0); WHITE BLOOD COUNT (AUTO) 7.6 K/uL (4.3-11.0)
[2022-12-13 07:26] LABS: C-REACTIVE PROTEIN 3.3 mg/dL (0.0-0.9)
[2022-12-13 07:31] LABS: LACTIC ACID 0.7 mmol/L (0.4-2.0)
[2022-12-13 08:12] LABS: ALANINE AMINOTRANSFERASE 31 U/L (12-78); ASPARTATE AMINOTRANSFERASE 70 U/L (15-37); BILIRUBIN,TOTAL 0.4 mg/dL (0.2-1.0); CALCIUM, SERUM 6.4 mg/dL (8.5-10.1); CARBON DIOXIDE 22 mmol/L (21-32); CHLORIDE 106 mmol/L (98-107); CREATININE 3.5 mg/dL (0.6-1.3); GLUCOSE 88 mg/dL (74-106); POTASSIUM 5.9 mmol/L (3.5-5.1); SODIUM SERUM 141 mmol/L (136-145); TOTAL PROTEIN, SERUM 5.4 g/dL (6.4-8.2); UREA NITROGEN, BLOOD 58 mg/dL (7-18)
[2022-12-13] MEDS ORDERED: CHOL100043 PO (08:17)
[2022-12-13] MEDS ORDERED: DILT30TA14 PO (08:17)
[2022-12-13] MEDS ORDERED: ATOR10TA PO (08:17)
[2022-12-13] MEDS ORDERED: SEVE800T28 PO (08:17)
[2022-12-13] MEDS ORDERED: CALC0.253 PO (08:17)
[2022-12-13] MEDS ORDERED: ALBU18HF2 IH (08:17)
[2022-12-13] MEDS ORDERED: ASPI-1420 PO (08:17)
[2022-12-13] MEDS ORDERED: VIT1TABL46 PO (08:17)
[2022-12-13 08:25] LABS: ALKALINE PHOSPHATASE 136 U/L (46-116)
[2022-12-13 08:27] LABS: ALBUMIN 1.2 g/dL (3.4-5.0)
[2022-12-13 08:28] LABS: BILIRUBIN,DIRECT < 0.0 mg/dL (0.0-0.2)
[2022-12-13 09:50] VITALS: BP 109/67; TEMP 98.9; O2SAT 100
== END 2022-12-13 12:02 | disposition short-term general hospital (02) ==
LOC: ER 06:21
DX: R06.00 Dyspnea, unspecified (principal); I13.2 Hypertensive heart and chronic kidney disease with heart failure and with stage 5 chronic kidney disease, or end stage renal disease; I50.9 Heart failure, unspecified; N18.6 End stage renal disease; L03.115 Cellulitis of right lower limb; J44.9 Chronic obstructive pulmonary disease, unspecified; F17.200 Nicotine dependence, unspecified, uncomplicated; Z99.2 Dependence on renal dialysis; Z60.2 Problems related to living alone; Z79.899 Other long term (current) drug therapy; Z20.822 Contact with and (suspected) exposure to COVID-19
CPT/HCPCS: 99285; 96365; 71045; 87426; 96368; 93005; 73590; 85025; 80048; 87040 ×2; 83605; 80076; 85652; 36415; 84484; 83880; 86140; J3370 ×2; J2543 ×2; J7060; A4223; C9803

== ENCOUNTER 2023-01-22 04:13 | Emergency (ER) | payer MEDICARE, OTHER ==
[~2023-01-22] VITALS: Ht 167.6 cm; Wt 57.2 kg
[~2023-01-22 04:13] MED LIST changes: +ALBU18HF2 IH; -ASPI-1169 PO; +ASPI-1420 PO; +ATOR10TA PO; +CALC0.253 PO; -CARV12.52 PO; +CHOL100043 PO; +DILT30TA14 PO; -MULT-447 PO; -PRED50TA PO; +SEVE800T28 PO; -SIMV-46 PO; +VIT1TABL46 PO
[2023-01-22] MEDS ORDERED: FUROSEMIDE 40 MG/4 ML VIAL IV ONE (04:30)
[2023-01-22] MEDS ORDERED: methylPREDNISolone SOD SUCC 125 MG/2ML VIAL IV ONE (04:30)
[2023-01-22] MEDS ORDERED: methylPREDNISolone SOD SUCC 125 MG/2ML VIAL ONE (05:17)
[2023-01-22] MEDS ORDERED: FUROSEMIDE 40 MG/4 ML VIAL ONE (05:17)
[2023-01-22 05:29] LABS: BASOPHILS % (AUTO) 0.5 % (0.0-2.0); EOSINOPHILS # (AUTO) 0.1 K/uL (0.0-0.7); HEMATOCRIT 27 % (33-45); HEMOGLOBIN 7.9 g/dL (11.5-14.8); LYMPHOCYTES # (AUTO) 0.5 K/uL (0.8-4.8); LYMPHOCYTES % (AUTO) 7.9 % (20.0-44.0); MEAN CORPUSCULAR HEMOGLOBIN 26 PG (26.0-33.0); MEAN CORPUSCULAR HGB CONC 30 g/dl (31.0-36.0); MEAN CORPUSCULAR VOLUME 86 fL (82-100); MONOCYTES # (AUTO) 0.5 K/uL (0.1-1.30); MONOCYTES % (AUTO) 7.1 % (2.0-12.0); NEUTROPHILS # (AUTO) 5.4 K/uL (1.8-8.9); NEUTROPHILS % (AUTO) 83.5 % (43.0-81.0); PLATELET COUNT (AUTO) 305 K/uL (150-450); RED BLOOD CELL COUNT(AUTO) 3.09 MIL/uL (4.0-5.2); RED CELL DISTRIBUTION WIDTH 21.2 % (11.5-15.0); WHITE BLOOD COUNT (AUTO) 6.5 K/uL (4.3-11.0)
[2023-01-22 05:36] LABS: CARBON DIOXIDE 25 mmol/L (21-32); CHLORIDE 107 mmol/L (98-107); CREATININE 3.4 mg/dL (0.6-1.3); GLUCOSE 98 mg/dL (74-106); POTASSIUM 3.9 mmol/L (3.5-5.1); SODIUM SERUM 138 mmol/L (136-145); UREA NITROGEN, BLOOD 50 mg/dL (7-18)
[2023-01-22 05:39] LABS: INR 1.03 (0.91-1.10); PARTIAL THROMBOPLASTIN TIME 29.8 SEC (24.3-34.3); PROTHROMBIN TIME 10.9 SECS (9.2-11.1)
[2023-01-22 05:43] LABS: LACTIC ACID 0.9 mmol/L (0.4-2.0)
[2023-01-22 05:50] LABS: ALANINE AMINOTRANSFERASE 29 U/L (12-78); ALBUMIN 1.6 g/dL (3.4-5.0); ALKALINE PHOSPHATASE 153 U/L (46-116); ASPARTATE AMINOTRANSFERASE 28 U/L (15-37); BILIRUBIN,DIRECT 0.1 mg/dL (0.0-0.2); BILIRUBIN,TOTAL 0.1 mg/dL (0.2-1.0); NT-PRO BNP 5123 pg/mL (0-125); TOTAL PROTEIN, SERUM 5.5 g/dL (6.4-8.2)
[2023-01-22 05:51] LABS: CALCIUM, SERUM 5.7 mg/dL (8.5-10.1)
[2023-01-22 09:41] VITALS: BP 174/99; TEMP 98.3; O2SAT 92
[2023-01-22 11:55] LABS: LYMPHOCYTES % (MANUAL) 2 % (16-48); MONOCYTES % (MANUAL) 6 % (0-11.0); NEUTROPHILS % (MANUAL) 92 (42-76)
[2023-01-22 11:56] LABS: ANISOCYTOSIS 1+; PLATELET ESTIMATE ADEQUATE; TARGET CELLS 1+
[2023-01-22 11:57] LABS: OVALOCYTES 1+
== END 2023-01-22 09:41 | disposition home or self-care (01) ==
LOC: ER 04:15
DX: I13.2 Hypertensive heart and chronic kidney disease with heart failure and with stage 5 chronic kidney disease, or end stage renal disease (principal); N18.6 End stage renal disease; I50.9 Heart failure, unspecified; J44.9 Chronic obstructive pulmonary disease, unspecified; J90 Pleural effusion, not elsewhere classified; D64.9 Anemia, unspecified; F17.200 Nicotine dependence, unspecified, uncomplicated; Z99.2 Dependence on renal dialysis; Z60.2 Problems related to living alone; Z79.899 Other long term (current) drug therapy; Z20.822 Contact with and (suspected) exposure to COVID-19
CPT/HCPCS: 99285; 96374; 71045; 96375; 87426; 93005; 85025; 80048; 87040 ×2; 83605; 80076; 36415; 84484; 85730; 83880; 85007; J1940; J2930; C9803

== ENCOUNTER 2023-01-26 00:34 | Emergency (ER) | payer MEDICARE, OTHER ==
[~2023-01-26] VITALS: Ht 167.6 cm; Wt 57.2 kg
[2023-01-26 00:38] VITALS: BP 140/80; TEMP 98.7; O2SAT 96
[2023-01-26] MEDS ORDERED: METOCLOPRAMIDE HCL 10 MG/2 ML VIAL IV ONE (01:00)
[2023-01-26] MEDS ORDERED: SUMATRIPTAN SUCCINATE 6 MG/0.5 ML VIAL SQ ONE (01:00)
[2023-01-26 02:45] LABS: BASOPHILS % (AUTO) 0.3 % (0.0-2.0); EOSINOPHILS % (AUTO) 0.1 % (0.0-6.0); HEMATOCRIT 24 % (33-45); HEMOGLOBIN 7.2 g/dL (11.5-14.8); LYMPHOCYTES # (AUTO) 0.6 K/uL (0.8-4.8); LYMPHOCYTES % (AUTO) 4.6 % (20.0-44.0); MEAN CORPUSCULAR HEMOGLOBIN 26 PG (26.0-33.0); MEAN CORPUSCULAR HGB CONC 30 g/dl (31.0-36.0); MEAN CORPUSCULAR VOLUME 85 fL (82-100); MONOCYTES # (AUTO) 0.9 K/uL (0.1-1.30); NEUTROPHILS # (AUTO) 11.8 K/uL (1.8-8.9); PLATELET COUNT (AUTO) 459 K/uL (150-450); RED BLOOD CELL COUNT(AUTO) 2.84 MIL/uL (4.0-5.2); RED CELL DISTRIBUTION WIDTH 21.6 % (11.5-15.0); WHITE BLOOD COUNT (AUTO) 13.4 K/uL (4.3-11.0)
== END 2023-01-26 01:15 | disposition left against medical advice (07) ==
LOC: ER 00:38
DX: R07.9 Chest pain, unspecified (principal); I13.2 Hypertensive heart and chronic kidney disease with heart failure and with stage 5 chronic kidney disease, or end stage renal disease; N18.6 End stage renal disease; I50.9 Heart failure, unspecified; J44.9 Chronic obstructive pulmonary disease, unspecified; F17.200 Nicotine dependence, unspecified, uncomplicated; Z99.2 Dependence on renal dialysis; Z60.2 Problems related to living alone; Z79.51 Long term (current) use of inhaled steroids; Z79.899 Other long term (current) drug therapy
CPT/HCPCS: 36415; 85025-TC

== ENCOUNTER 2023-06-19 15:25 | Emergency (ER) | payer MEDICARE, OTHER ==
[~2023-06-19] VITALS: Ht 167.6 cm; Wt 66.2 kg
[2023-06-19 15:49] LABS: BASOPHILS % (AUTO) 0.8 % (0.0-2.0); EOSINOPHILS # (AUTO) 0.1 K/uL (0.0-0.7); HEMATOCRIT 38 % (33-45); HEMOGLOBIN 11.5 g/dL (11.5-14.8); LYMPHOCYTES # (AUTO) 0.3 K/uL (0.8-4.8); LYMPHOCYTES % (AUTO) 7.3 % (20.0-44.0); MEAN CORPUSCULAR HEMOGLOBIN 27 PG (26.0-33.0); MEAN CORPUSCULAR HGB CONC 31 g/dl (31.0-36.0); MEAN CORPUSCULAR VOLUME 89 fL (82-100); MONOCYTES # (AUTO) 0.5 K/uL (0.1-1.30); MONOCYTES % (AUTO) 12.1 % (2.0-12.0); NEUTROPHILS # (AUTO) 3.4 K/uL (1.8-8.9); NEUTROPHILS % (AUTO) 76.8 % (43.0-81.0); PLATELET COUNT (AUTO) 219 K/uL (150-450); RED BLOOD CELL COUNT(AUTO) 4.24 MIL/uL (4.0-5.2); RED CELL DISTRIBUTION WIDTH 18.3 % (11.5-15.0); WHITE BLOOD COUNT (AUTO) 4.4 K/uL (4.3-11.0)
[2023-06-19 15:58] LABS: CALCIUM, SERUM 7.5 mg/dL (8.5-10.1); CARBON DIOXIDE 26 mmol/L (21-32); CHLORIDE 113 mmol/L (98-107); CREATININE 3.3 mg/dL (0.6-1.3); GLUCOSE 89 mg/dL (74-106); POTASSIUM 4.9 mmol/L (3.5-5.1); SODIUM SERUM 142 mmol/L (136-145); UREA NITROGEN, BLOOD 44 mg/dL (7-18)
[2023-06-19 16:00] VITALS: BP 146/68; O2SAT 80
[2023-06-19] MEDS ORDERED: ALBUTEROL FS 2.5 MG/3 ML VIAL.NEB NEB ONE (16:00)
[2023-06-19] MEDS ORDERED: IPRATROPIUM NEB FS 0.5 MG/2.5 ML AMPUL.NEB NEB ONE (16:00)
[2023-06-19] MEDS ORDERED: methylPREDNISolone SOD SUCC 125 MG/2ML VIAL IV ONE (16:00)
[2023-06-19 16:04] LABS: ALANINE AMINOTRANSFERASE 31 U/L (12-78); ALBUMIN 1.9 g/dL (3.4-5.0); ALKALINE PHOSPHATASE 124 U/L (46-116); ASPARTATE AMINOTRANSFERASE 21 U/L (15-37); BILIRUBIN,DIRECT 0.1 mg/dL (0.0-0.2); BILIRUBIN,TOTAL 0.2 mg/dL (0.2-1.0); TOTAL PROTEIN, SERUM 5.1 g/dL (6.4-8.2)
== END 2023-06-19 16:00 | disposition left against medical advice (07) ==
LOC: ER 15:28
DX: J44.1 Chronic obstructive pulmonary disease with (acute) exacerbation (principal); I12.0 Hypertensive chronic kidney disease with stage 5 chronic kidney disease or end stage renal disease; N18.6 End stage renal disease; F17.200 Nicotine dependence, unspecified, uncomplicated; F10.10 Alcohol abuse, uncomplicated; F19.10 Other psychoactive substance abuse, uncomplicated; Z99.2 Dependence on renal dialysis; Z60.2 Problems related to living alone
CPT/HCPCS: 36415; 80048-TC; 80076-TC; 83880; 84484-TC; 85025-TC